=== PATIENT | male | born 1985 | race Caucasian/White ===

== ENCOUNTER 2024-06-02 20:02 | Emergency (ER) | payer BC, SELFPAY ==
[2024-06-02 20:05] VITALS: BP 122/73
[2024-06-02 20:21] LABS: % Basophils 0.3 % (0-2); % Eosinophils 0.3 % (0-6); % Immature Granulocytes 0.1 % (0-0.5); % Lymphocytes 41.3 % (20.5-51.1); % Monocytes 4.2 % (1.7-9.3); % Neutrophils 53.8 % (42.2-75.2); Absolute Lymphocytes 3.6 10^3/uL (1.2-3.4); Absolute Monocytes 0.4 10^3/uL (0.1-0.6); Absolute Neutrophils 4.7 10^3/uL (1.4-6.5); Hemoglobin 15.4 g/dL (13.0-18.0); Mean Corp Hgb Conc. 35.8 g/dL (33.0-37.0); Mean Corpuscular Hgb 31.9 pg (27.0-31.0); Nucleated Red Blood Cells % 0 % (-); Platelet Count 249 10^3/uL (130-400); Red Blood Cell Count 4.83 10^6/uL (4.70-6.10); Red Cell Dist. Width 11.6 % (11.5-14.5); White Blood Cell Count 8.7 10^3/uL (4.8-10.8)
[2024-06-02 20:23] VITALS: BP 106/68
[2024-06-02 20:29] VITALS: BMI 30.1
[2024-06-02 20:42] LABS: ALT (SGPT) 25 U/L (0-50); AST (SGOT) 30 U/L (17-59); Albumin 4.5 g/dl (3.5-5.0); Alkaline Phosphatase 53 U/L (38-126); Blood Urea Nitrogen 19 mg/dl (9-20); Calcium 9.5 mg/dl (8.4-10.2); Carbon Dioxide 21 mmol/L (22-30); Chloride 103 mmol/L (98-107); Estimated Creatinine Clearance 120 ml/min; Glucose 150 mg/dl (70-99); Potassium 3.5 mmol/L (3.5-5.1); Sodium 138 mmol/L (135-145); Total Bilirubin 0.5 mg/dl (0.2-1.3); Total Protein 6.9 g/dl (6.3-8.2); eGFR > 60.00
[2024-06-02 20:55] LABS: NT-proBNP 23.4 pg/ml; Troponin I 0.013 ng/ml
[2024-06-02 21:00] VITALS: BP 115/69
--- NOTE | 2024-06-02 21:31 | ED.GENMED ---
History of Present Illness
General
Chief Complaint: Fainting/Passed Out
Time Seen by Provider: 06/02/24 21:15
History of Present Illness
History of Present Illness:
78-year-old male without significant past medical history presenting to the emergency department for a syncopal episode. Prior to arrival, patient was eating dinner with his family at a restaurant. He started to feel lightheaded and subsequently
had a syncopal episode while sitting. caught him as he fell out of the bonilla that they were sitting in. She notes that he came to it after about a minute. Denies any diffuse body shaking. Notes that patient had a similar episode about 6
months ago, however was never evaluated for it. Denies any prodromal chest pain or difficulty breathing. Reports that he felt fine all day today, however does feel that he is dehydrated. Denies fever or systemic symptoms. Denies weakness or
numbness to his extremities. Denies any history of seizures. Denies known cardiac history, does notes a family history of cardiac disease. Reports that he is currently asymptomatic. Denies dystrophy medical complaints
Phy Exam
Physical Exam
Physical Exam:
General: Well-appearing, no clinical signs of dehydration, nontoxic and in no acute distress
HEENT: protecting airway
Neck: appears supple, no midline cervical tenderness
CV: Normal heart rate, regular rhythm, no evidence of cyanosis
Resp: No accessory muscle use, no increased work of breathing, lungs clear to auscultation bilaterally
Abd: Soft and non-distended, no tenderness to palpation
Extremities: No deformities, no swelling, no erythema
Neuro: alert, no focal neurologic deficit
: deferred
Rectal: deferred
Psych: Normal affect
Skin: Intact
Course
Orders/Labs/Results
Orders:
Orders
06/02/24 20:06
Electrocardiogram (*1) Urgent
Reason for Study: Other
Other Reason for Exam: Respiratory Distress
Cardiac Monitoring- Treatment ONCE
EKG- Treatment ONCE
IV Insert/Care/Rem.- Treatment PRN
CR Chest - 2 Views Urgent
Comment:
Reason For Exam: respiratory distress
O2 Therapy [RESP] Urgent
Titrate/Wean O2 to maintain O2 sat greater than (%): 93
Special Instructions: TO MAINTAIN CONTINUOUS O2 SATS >/= 93%
Pulse Ox/cont/shift [RESP] Urgent
Quantity: 1
Special Instructions: continuous pulse ox
06/02/24 20:15
Complete Blood Count/With Diff Urgent
Comprehensive Metabolic Panel Urgent
NT-proBNP Urgent
Troponin I Urgent
06/02/24 21:28
0.9% Sodium Chloride 1000 ml [Nss] 1,000 ml IV BOLUS
06/02/24 21:29
CT Head W/o Iv Contrast Urgent
Comment:
Reason For Exam: syncope
06/02/24 21:44
Troponin I Urgent
06/02/24 22:41
EKG [Electrocardiogram (*1)] Urgent
Reason for Study: Syncope
EKG- Treatment ONCE
Abnormal Lab Results
06/02/24
20:15
MCH 31.9 H pg
(27.0-31.0)
Absolute Lymphs (auto) 3.6 H 10^3/uL
(1.2-3.4)
Carbon Dioxide 21 L mmol/L
(22-30)
Glucose 150 H mg/dl
(70-99)
06/02/24 20:15
06/02/24 20:15
Vital Signs
Initial and Last Documented VS:
Initial Vital Signs
Temp Pulse Resp BP Pulse Ox
98.2 F 75 16 122/73 98
06/02/24 20:05 06/02/24 20:05 06/02/24 20:05 06/02/24 20:05 06/02/24 20:05
Last Documented Vital Signs
Temp Pulse Resp BP Pulse Ox
98.2 F 79 22 110/65 95
06/02/24 20:05 06/02/24 22:00 06/02/24 22:00 06/02/24 22:00 06/02/24 22:00
MDM/Problems Addressed
MDM/Problems Addressed:
38-year-old without significant past medical history presenting after a syncopal episode. Vital signs on arrival are normal.
On exam, patient is well-appearing, no acute distress, resting comfortably. Benign cardiac, pulmonary neurologic exam. No signs of trauma. He is afebrile, nontoxic. Unclear etiology of patient's syncopal episode. Symptoms not seem consistent
with a seizure. Does note that he feels dehydrated, possible volume depletion/vasovagal component, was preceded by lightheadedness. EKG obtained on arrival, no arrhythmia, however does have some T wave inversion laterally, no STEMI criteria.
Patient presently without chest pain. Laboratory analysis and troponin obtained prior to my arrival, within normal limits. Troponin is minimally detectable. Will repeat within 3 hours. Given that this is patient's second syncopal episode in a
6-month period, will screen with CT brain imaging. Will treat with IV fluids and continue to closely monitor.
23:00 -patient's labs are unremarkable. Second troponin is undetectable. Repeat EKG without concerning interval changes. CT brain without acute intracranial abnormality. On reassessment patient remains hemodynamically stable. At this time feel
patient is stable for discharge with close interval follow-up with his primary care doctor. Will also provide information for cardiology. Return precautions discussed and patient verbalized understanding
*EKG
Interpreted by ED Provider?: Yes
EKG Intrepretation Date: 06/02/24
EKG Intrepretation Time: 21:35
Interpretation: abnormal
Comparison EKG: no comparison EKG present
Heart Rate: 72
Rate: normal
Rhythm: sinus
[place]: normal axis
Interval: first degree heart block
QRS Pattern: normal QRS
Ischemia: T-wave inversion (V3-V6)
*Critical Care Note
Total Time (30-74mins, 75-104mins- exclusive of procedures): Not Applicable
ED Attending Note
-
Portions of this chart may have been created with voice recognition software.� Occasional wrong word or��sound alike� substitutions may have occurred due to the inherent limitations of voice recognition software.
Discharge Plan
Departure
Referrals:
UNKNOWN - PT DOES,NOT KNOW [Unknown Provider] -
Interventions
Interventions:
*Risk Screen - Suicide Last Done: 06/02/24 20:08
*General Assessment Last Done: 06/02/24 20:05
*Neglect/Abuse Screening Last Done: 06/02/24 20:05
*ED COVID-19 Vaccine History Last Done: 06/02/24 20:35
ED- Cardiac Assessment Last Done: 06/02/24 20:29
ED- Neurological Assessment Last Done: 06/02/24 20:29
Discharge Date and Time
Print Language: KHMER
[2024-06-02] MEDS: NSS 1000 IV (21:46)
[2024-06-02 22:00] VITALS: BP 110/65
[2024-06-02 22:32] LABS: Troponin I < 0.012 ng/ml
== END 2024-06-02 23:17 | disposition home or self-care (01) ==
LOC: EMR 20:02
PROVIDERS: EMERGENCY PHYSICIAN Student in an Organized Health Care Education/Training Program; FAMILY PHYSICIAN Internal Medicine
DX: R55 Syncope and collapse (principal)
CPT/HCPCS: 99285; 96360; 70450; 71046; 80053; 83880; 84484; 85025; 93005

== ENCOUNTER 2024-06-04 10:51 | Emergency (ER) | payer BC, SELFPAY ==
[2024-06-04] VITALS (9 sets, daily range): BP systolic 116–130; BP diastolic 81–93; PULSE 55–58; BMI 29.9
[2024-06-04 11:37] LABS: % Basophils 0.4 % (0-2); % Eosinophils 0.7 % (0-6); % Immature Granulocytes 0.1 % (0-0.5); % Lymphocytes 42.3 % (20.5-51.1); % Monocytes 6.8 % (1.7-9.3); % Neutrophils 49.7 % (42.2-75.2); Absolute Eosinophils 0.1 10^3/uL (0-0.7); Absolute Lymphocytes 3.2 10^3/uL (1.2-3.4); Absolute Monocytes 0.5 10^3/uL (0.1-0.6); Absolute Neutrophils 3.8 10^3/uL (1.4-6.5); Hematocrit 41.9 % (39.0-52.0); Hemoglobin 15.1 g/dL (13.0-18.0); Mean Corpuscular Hgb 30.9 pg (27.0-31.0); Mean Corpuscular Volume 85.9 fL (80.0-94.0); Mean Platelet Volume 8.9 fL (7.4-10.4); Nucleated Red Blood Cells % 0 % (-); Platelet Count 246 10^3/uL (130-400); Red Blood Cell Count 4.88 10^6/uL (4.70-6.10); Red Cell Dist. Width 11.7 % (11.5-14.5); White Blood Cell Count 7.6 10^3/uL (4.8-10.8)
[2024-06-04 11:50] LABS: ALT (SGPT) 25 U/L (0-50); AST (SGOT) 24 U/L (17-59); Albumin 4.5 g/dl (3.5-5.0); Alkaline Phosphatase 52 U/L (38-126); Blood Urea Nitrogen 16 mg/dl (9-20); Calcium 9.7 mg/dl (8.4-10.2); Carbon Dioxide 25 mmol/L (22-30); Chloride 102 mmol/L (98-107); Estimated Creatinine Clearance 120 ml/min; Glucose 103 mg/dl (70-99); Potassium 4.4 mmol/L (3.5-5.1); Sodium 139 mmol/L (135-145); Total Bilirubin 0.5 mg/dl (0.2-1.3); eGFR > 60.00
[2024-06-04 13:15] LABS: D-Dimer < 0.27 ug/mlFEU (0.00-0.50)
--- NOTE | 2024-06-04 13:40 | ED.GENMED ---
History of Present Illness
<Rosy Ramirez PA-C - Last Filed: 06/04/24 16:45>
General
Chief Complaint: Cardiac Symptoms
Source: patient
Exam Limitations: none
Time Seen by Provider: 06/04/24 11:26
Nursing documentation reviewed up to this point in time: agreed with
History of Present Illness
History of Present Illness:
PT IS A 38 Y/O M
here 2 days ago after witnessed syncope while eating dinner out at a restaurant
he does report that he had eaten a decent amount, felt lightheaded and then tingling in his fingers and then passe dout
he woke up and was orietned
no shaking
came to the ER where he had a work up - ekg showed sinus rhythm 1st degree av block in he 70s with t wave inv laterally
he had no old oekg
he had [address] was normal
pt had never had cp
felt fine yesterday
woke up today and syas he felt normal
drank some coffee and then went to have BM and sat down and felt tingling and jittery and lightheaded
made him nervous
called his mother in law to come over and then while he was sitting he went to check his HR and it ws 100 and fast for 1 minute
then resovled and he feels fine but he is very nervous about passing out again
no pleuritic pain
never had any pain today
no syncope today
eating/drinking normally
Past History
<Rosy Ramirez PA-C - Last Filed: 06/04/24 16:45>
Past History
ED Past Medical History: None
ED Past Surgical History: None
Social History
Tobacco: Non-smoker
Alcohol: Occasional
Drug: None
Personal:
Living: with family
Employment: Employed
Review of Systems
<Rosy Ramirez PA-C - Last Filed: 06/04/24 16:45>
Review of Systems
Allergies reviewed?: Yes
All Other Systems: Not applicable
Phy Exam
<Rosy Ramirez PA-C - Last Filed: 06/04/24 16:45>
Physical Exam
Physical Exam:
GENERAL: Alert , in no apparent distress
EYE: pupils equal and reactive
NECK: Supple
ENT: o/p clr, mmm.
CARDIAC:bradycardia 50s, no murmur; no edema
LUNGS: Clear breath sounds bilaterally, no acute respiratory distress, no wheezes/rales/rhonchi
ABDOMEN: Soft, without focal tenderness, no r/g, no cvat, normal bowel sounds
NEUROLOGICAL: Alert and oriented, no focal neuro deficits
SKIN: Warm and dry, skin intact.
MUSCULOSKELETAL: No edema, well perfused. neg manjula's sign
PSYCH: Normal and appropriate interaction.
Course
<Rosy Ramirez PA-C - Last Filed: 06/04/24 16:45>
Orders/Labs/Results
Orders:
Orders
06/04/24 10:52
Electrocardiogram (*1) Urgent
Reason for Study: Bradycardia / Tachycardia
EKG- Treatment ONCE
06/04/24 11:21
Complete Blood Count/With Diff Urgent
Comprehensive Metabolic Panel Urgent
D-Dimer Urgent
TSH Reflex To Free T4 Urgent
Abnormal Lab Results
06/04/24
11:21
Glucose 103 H mg/dl
(70-99)
06/04/24 11:21
06/04/24 11:21
Vital Signs
Initial and Last Documented VS:
Initial Vital Signs
Temp Pulse Resp BP Pulse Ox
98.4 F 60 16 130/86 100
06/04/24 10:56 06/04/24 10:56 10/05/24 10:56 06/04/24 10:56 06/04/24 10:56
Last Documented Vital Signs
Temp Pulse Resp BP Pulse Ox
98.4 F 54 14 116/81 99
06/04/24 10:56 06/04/24 15:12 06/04/24 15:12 06/04/24 15:12 06/04/24 15:12
<Sriram Ridley DO - Last Filed: 06/04/24 14:37>
Orders/Labs/Results
Orders:
Orders
06/04/24 10:52
Electrocardiogram (*1) Urgent
Reason for Study: Bradycardia / Tachycardia
EKG- Treatment ONCE
06/04/24 11:21
Complete Blood Count/With Diff Urgent
Comprehensive Metabolic Panel Urgent
D-Dimer Urgent
TSH Reflex To Free T4 Urgent
Abnormal Lab Results
06/04/24
11:21
Glucose 103 H mg/dl
(70-99)
06/04/24 11:21
06/04/24 11:21
Vital Signs
Initial and Last Documented VS:
Initial Vital Signs
Temp Pulse Resp BP Pulse Ox
98.4 F 60 16 130/86 100
06/04/24 10:56 06/04/24 10:56 06/04/24 10:56 06/04/24 10:56 06/04/24 10:56
Last Documented Vital Signs
Temp Pulse Resp BP Pulse Ox
98.4 F 54 14 116/81 99
06/04/24 10:56 06/04/24 15:12 06/04/24 15:12 06/04/24 15:12 06/04/24 15:12
<Rosy Ramirez PA-C - Last Filed: 06/04/24 16:45>
MDM/Problems Addressed
Differential Diagnosis Includes:
dysrhythmia, symptomatic bradycardia, sick sinus syndrome, vasovagal syncope
MDM/Problems Addressed:
38 y/o M borderline HLD
here 2 days ago after syncope while eating, he was seated, felt lightheaded and passed out
ekg 2 days ago showed sinus rhythm 70s, 1st degree block, t wave inv v3-v6 with subtle depresion 1 mm v4
no old ekg
labs normal
trop x 2 neg
d/c home to f/u - has appt with dr. brody on 06/21
today had sudden feeling of lightheadedness just before BM, felt tingling in his hands both sides, never passed out; the feeling subsided; he then about 30 minutes later was sitting and felt his heart racing for about 1 min
he never passed out; hr was 100;
here he is symptom free and hr is 50s, sinus yanely ekg
but now, his t waves are all upright normalized:
d dimer, trop neg; electrolytes normal
well appearingmildly anixous
labs reviewed and unrmarkable
d dimer neg
seen by ed attending who agreed
we d/w cards - they are unable to place holter todya but can get note to office to move up appt
dr. shaikh did not feel that the t wave changes from being abnormal and then normalizing but he had 2 neg trop 2 dyas ago and no cp today
likely vasovagal epsidoes
f/u pcp and cards
<Rosy Ramirez PA-C - Last Filed: 06/04/24 16:45>
*Critical Care Note
Total Time (30-74mins, 75-104mins- exclusive of procedures): Not Applicable
ED Attending Note
<Rosy Ramirez PA-C - Last Filed: 06/04/24 16:45>
-
Portions of this chart may have been created with voice recognition software.� Occasional wrong word or��sound alike� substitutions may have occurred due to the inherent limitations of voice recognition software.
<Sriram Ridley DO - Last Filed: 06/04/24 14:37>
ED Attending Note
Patient seen and examined by attending physician: Yes
I performed the substantive portion of visit, reviewed & personally made and approve the management plan that is documented in note by myself or LU.: Yes
Discharge Plan
Departure
Patient Disposition: Home (Routine Discharge)
Date of Disposition: 06/04/24
Time of Disposition: 15:00
Patient with high blood pressure during this ER visit?: No
Condition: Fair
Covid-19: Not Applicable
Discharge Problem:
Palpitations, Near syncope
Instructions: Near Fainting (DC), Palpitations ED
Referrals:
Miguel Shaihk MD [Active] - Follow up in 2-3 days
Sandra Wood DO [Family Provider] -
Activity Restrictions/Additional Instructions:
YOUR BLOOD WORK WAS REASSURING
YOUR EKG IS NORMAL TODAY
WE SPOKE WITH THE POT [facility]ER WHO WILL GET A NOTE TOT HE OFFICE TO CALL YOU THURSDAY TO MOVE UP THE APPOINTMENT
FOR NOW, DRINK A LOT OF FLUIDS
TRY TO AVOID STRENUOUS ACTIVITY
IF YOU START FEELING SYMPTOMS, LAY DOWN. IF YOU PASS OUT AGAIN, RETURN
IF YOU HAVE ABNORMAL HEART RATE, CHECK IT BY COUNTING OVER A MINUTE OR CHECK YOUR APPLE WATCH. IF IT IS EXCEEDINGLY LOW (< 40) OR HIGH (>. 120) RETURN OR IF YOU FEEL UNCOMFORTABLE YOU ARE ALWAY SWELCOME TO RETURN
Interventions
Interventions:
*Risk Screen - Suicide Last Done: 06/04/24 10:56
*General Assessment Last Done: 06/04/24 12:29
*Neglect/Abuse Screening Last Done: 06/04/24 10:56
*ED COVID-19 Vaccine History Last Done: 06/04/24 12:28
*Nursing Disposition Last Done: 06/04/24 15:16
ED- Pulmonary Assessment Last Done: 06/04/24 11:00
ED- Cardiac Assessment Last Done: 06/04/24 11:00
Discharge Date and Time
Discharge Date/Time: 06/04/24 15:17
Print Language: YI
[2024-06-04 14:15] LABS: TSH Reflex To Free T4 1.29 uIU/ml (0.47-4.68)
== END 2024-06-04 15:17 | disposition home or self-care (01) ==
LOC: EMR 10:51
PROVIDERS: Physician Assistant; EMERGENCY PHYSICIAN Emergency Medicine; FAMILY PHYSICIAN Internal Medicine
DX: R55 Syncope and collapse (principal); R20.2 Paresthesia of skin; R00.1 Bradycardia, unspecified; R00.2 Palpitations; E78.5 Hyperlipidemia, unspecified; Z88.1 Allergy status to other antibiotic agents
CPT/HCPCS: 99283; 80053; 84443; 85025; 85379; 93005

== ENCOUNTER → 2024-06-21 15:54 | Outpatient (REF) | payer BC, SELFPAY | LOC: HWRCS 15:54 | PROVIDERS: ATTENDING PHYSICIAN Internal Medicine Cardiovascular Disease; FAMILY PHYSICIAN Internal Medicine | DX: R55 Syncope and collapse (principal); R94.31 Abnormal electrocardiogram [ECG] [EKG] | CPT/HCPCS: 93306 ==

== ENCOUNTER → 2024-06-27 13:30 | Outpatient (REF) | payer BC, SELFPAY | LOC: RCS 13:30 | PROVIDERS: ATTENDING PHYSICIAN Internal Medicine Cardiovascular Disease; FAMILY PHYSICIAN Internal Medicine | DX: R55 Syncope and collapse (principal); R94.31 Abnormal electrocardiogram [ECG] [EKG] | CPT/HCPCS: 93017 ==